=== PATIENT | male | born 1980 | race Caucasian/White ===

== ENCOUNTER 2022-03-02 17:12 | Emergency (ER) | payer SELFPAY ==
[~2022-03-02] VITALS: Ht 182.9 cm; Wt 99.8 kg
[2022-03-02 17:21] VITALS: BP 136/77
--- NOTE | 2022-03-02 17:21 | NUR ---
BIBA TAKEN TO BED 10
[2022-03-02] MEDS ORDERED: LIDOCAINE MPF 1% 5 ML ONE (18:12)
[2022-03-02] MEDS ORDERED: LIDOCAINE MPF 1% 10 MG/ML VIAL IM ONE (18:15)
--- NOTE | 2022-03-02 18:36 | NUR ---
42/M BIBA FROM HOME, PER EMS FAMILY CALLED 911 STATING PATIENT HAD A GROUND LEVEL FALL WHEN TRYING TO GET OUT OF THE SHOWER. FAMILY AND PATIENT UNSURE OF LOC, PER EMS PATIENT HAS 4CM LACERATION, BLEEDING ONLY CONTROLLED WITH PRESSURE DRESSING AT THIS TIME. PATIENT DENIES PAIN, N/V AT THIS TIME, ADMITS TO CONSUMING 7 BEERS TODAY.
--- NOTE | 2022-03-02 18:41 | NUR ---
Patient discharged with v/s stable. Written and verbal after care instructions ABOUT LACERATION CARE given and explained. Patient verbalized understanding. Ambulatory with steady gait. All questions addressed prior to discharge. Advised to follow up with PMD.
== END 2022-03-02 18:41 | disposition home or self-care (01) ==
LOC: MED 17:12
DX: S01.01XA Laceration without foreign body of scalp, initial encounter (principal); F10.129 Alcohol abuse with intoxication, unspecified; W19.XXXA Unspecified fall, initial encounter; Y93.89 Activity, other specified; Y92.89 Other specified places as the place of occurrence of the external cause; Y99.8 Other external cause status
CPT/HCPCS: 12002; 70450; 96372; 99284; J2001; 90715